=== PATIENT | female | born 1995 | race Caucasian/White ===

== ENCOUNTER 2017-08-03 07:45 | Inpatient (IN) ==
[2017-08-03] MEDS ORDERED: SODIUM CHLORIDE 0.9% 1,000 ML IV STA (08:09)
[2017-08-03] MEDS ORDERED: ONDANSETRON 4 MG/2 ML VIAL IV STA (08:09)
[2017-08-03] MEDS ORDERED: LABETALOL 20 MG/4 ML SYRINGE IV STA (08:20)
[2017-08-03] MEDS ORDERED: LABETALOL 20 MG/4 ML SYRINGE IV ONE (08:24)
[2017-08-03] MEDS ORDERED: ONDANSETRON 4 MG/2 ML VIAL ONE (08:24)
[2017-08-03 08:53] LABS: Basophils % 0.3 % (0.0-0.8); Hematocrit 43.4 VOL% (35.7-47.0); Hemoglobin 14.5 GM/DL (12.0-16.0); Immature Granulocytes % 0.3 %; Immature Granulocytes Absolute 0.03 #; Lymphocytes # 1.2 10*3/uL (1.4-4.0); Lymphocytes % 10.5 % (21.3-54.2); Mean Corpuscular HGB Conc 33.4 GM/DL (32-36); Mean Corpuscular Hemoglobin 26 PG (27-34); Mean Corpuscular Volume 77.5 FL (87-102); Mean Platelet Volume 10.3 FL (9.6-12.0); Monocytes % 8.5 % (1.7-12.7); Neutrophils # 9.2 10*3/uL (1.4-7.4); Neutrophils % 80.4 % (38.7-73.9); Platelet Count 337 T/CUMM (130-400); Red Cell Distribution Width 12.6 % (9.3-17.3); White Blood Count 11.5 T/CUMM (4-12)
[2017-08-03 09:52] LABS: Calcium 9.9 MG/DL (8.5-10.1); Osmolality,Calculated 265.1 MOS/KG (273-304)
[2017-08-03 11:23] LABS: Apearance,Urine Slightly Hazy (Clear); Bacteria,Urine Few /HPF (Few); Bilirubin,Urine Negative (Negative); Blood, Urine Small mg/dL (Negative); Glucose,Urine (UA) Negative (Negative); Ketones,Urine 80 mg/dL (Negative); Mucus,Urine Occasional /LPF (Occasional); Nitrite,Urine Negative (Negative); Protein,Urine 30 MG/DL; RBC,Urine 2 /HPF (0-4); Squamous Epithelial Cell,Urine Occasional /HPF (0-10); Urine Color Yellow (Yellow); Urine Specific Gravity 1.014 (1.001-1.035); WBC,Urine 1 /HPF (0-6)
[2017-08-03 11:29] LABS: Barbiturates Screen,Urine Negative (Negative); Benzodiazepines Screen,Urine Negative (Negative); Cannabinoid Screen,Urine Negative (Negative); Opiate Screen,Urine Negative (Negative); Phencyclidine Screen,Urine Negative (Negative)
[2017-08-03] MEDS ORDERED: ONDANSETRON 4 MG/2 ML VIAL IV PRN (12:14)
[2017-08-03] MEDS ORDERED: BISACODYL 10 MG SUPP RECTAL PRN (12:14)
[2017-08-03] MEDS ORDERED: ACETAMINOPHEN 325 MG TABLET PO PRN (12:14)
[2017-08-03] MEDS ORDERED: MAGNESIUM HYDROXIDE SUSP 30 ML UDCUP PO PRN (12:14)
[2017-08-03] MEDS ORDERED: IBUPROFEN 800 MG TABLET PO PRN (12:14)
[2017-08-03] MEDS ORDERED: PROMETHAZINE 25 MG/1 ML VIAL IM PRN (12:14)
[2017-08-03] MEDS: DOCUSATE SODIUM 100 MG CAPSULE PO SCH ×2 (12:35→21:16)
[2017-08-03] MEDS: LACTATED RINGERS 1,000 ML IV SCH ×2 (12:36→19:28)
[2017-08-03] MEDS ORDERED: LABETALOL 20 MG/4 ML SYRINGE IV SCH (14:00)
[2017-08-03] MEDS: ATENOLOL 50 MG TABLET PO SCH (21:16)
[2017-08-04] MEDS: LACTATED RINGERS 1,000 ML IV SCH ×4 (00:22→15:26)
[2017-08-04] MEDS: ATENOLOL 50 MG TABLET PO SCH ×2 (08:35→21:16)
[2017-08-04] MEDS: DOCUSATE SODIUM 100 MG CAPSULE PO SCH ×2 (08:39→21:16)
[2017-08-04] MEDS: PROPYLTHIOURACIL 50 MG TABLET PO SCH ×3 (16:09→22:35)
[2017-08-04] MEDS ORDERED: MULTIVITAMIN INJ 10 ML in LACTATED RINGERS 1,000 ML IV SCH (17:00)
[2017-08-05] MEDS: LACTATED RINGERS 1,000 ML IV SCH ×2 (01:23→06:11)
[2017-08-05 07:16] VITALS: BP 140/86
[2017-08-05] MEDS: DOCUSATE SODIUM 100 MG CAPSULE PO SCH (08:45)
[2017-08-05] MEDS: ATENOLOL 50 MG TABLET PO SCH (08:45)
[2017-08-05] MEDS ORDERED: PROPYLTHIOURACIL 50 MG TABLET PO SCH (09:00)
== END 2017-08-05 09:50 | disposition home or self-care (01) | DRG 566 ==
LOC: N.ED 07:45 → N.EDINP 08:34 → N.OB 11:48
PROVIDERS: ADMIT Obstetrics & Gynecology; ATTEND Obstetrics & Gynecology

== ENCOUNTER 2017-12-28 23:44 | Inpatient (IN) ==
[2017-12-29] MEDS ORDERED: TERBUTALINE 1 MG/1 ML VIAL SUBCUT ONE (01:18)
[2017-12-29] MEDS ORDERED: NIFEdipine 10 MG CAPSULE PO ONE (01:19)
[2017-12-29] MEDS ORDERED: LACTATED RINGERS 1,000 ML IV SCH ×2 (01:30→04:00)
[2017-12-29] MEDS ORDERED: ONDANSETRON 4 MG/2 ML VIAL IM PRN (02:10)
[2017-12-29] MEDS ORDERED: BUTORPHANOL 2 MG/ML VIAL IV PRN (02:12)
[2017-12-29 02:19] LABS: Apearance,Urine CLEAR (Clear); Bilirubin,Urine Negative (Negative); Blood, Urine Negative (Negative); Glucose,Urine (UA) Negative (Negative); Ketones,Urine Negative (Negative); Nitrite,Urine Negative (Negative); Protein,Urine Negative; RBC,Urine <1 /HPF (0-4); Squamous Epithelial Cell,Urine Occasional /HPF (0-10); Urine Color Straw (Yellow); Urine Specific Gravity 1.004 (1.001-1.035); Urine Urobilinogen < 2.0 EU/DL (0.2-1.0)
[2017-12-29] MEDS ORDERED: ONDANSETRON 4 MG/2 ML VIAL ONE (02:19)
[2017-12-29] MEDS ORDERED: ONDANSETRON 4 MG/2 ML VIAL IV PRN ×3 (02:34→04:11)
[2017-12-29] MEDS ORDERED: OXYTOCIN/LR 20 UNIT/1,000 ML BAG IV ONE ×3 (03:46→04:11)
[2017-12-29] MEDS ORDERED: oxyCODONE/ACETAMINOPHEN 5-325 MG TABLET PO PRN ×2 (04:11)
[2017-12-29] MEDS ORDERED: MEASLES/MUMPS/RUBELLA VACCINE 0.5 ML VIAL SUBCUT ONE (04:11)
[2017-12-29] MEDS ORDERED: ACETAMINOPHEN 325 MG TABLET PO PRN (04:11)
[2017-12-29] MEDS ORDERED: RHO(D) IMMUNE GLOBULIN 300 MCG SYRINGE IM ONE (04:11)
[2017-12-29] MEDS ORDERED: BISACODYL 10 MG SUPP RECTAL PRN (04:11)
[2017-12-29] MEDS ORDERED: DIPH/TET/ACEL PERT BOOSTER VACCINE 0.5 ML VIAL IM ONE (04:11)
[2017-12-29] MEDS ORDERED: LANOLIN 50% CREAM 0.3 OZ TUBE TOP PRN (04:11)
[2017-12-29] MEDS ORDERED: WITCH HAZEL PADS 100/JAR TOP PRN (04:11)
[2017-12-29] MEDS ORDERED: HYDROCORTISONE 2.5% RECTAL CREAM 30 GM TUBE TOP PRN (04:11)
[2017-12-29] MEDS ORDERED: BENZOCAINE 20%/MENTHOL 0.5% SPRAY 56 GM CAN TOP PRN (04:11)
[2017-12-29 04:50] LABS: Barbiturates Screen,Urine Negative (Negative); Benzodiazepines Screen,Urine Negative (Negative); Cannabinoid Screen,Urine Negative (Negative); Opiate Screen,Urine Negative (Negative); Phencyclidine Screen,Urine Negative (Negative)
[2017-12-29 04:51] LABS: Cord Arterial Blood HCO3 20.4 MMOL/L
[2017-12-29 04:57] LABS: Cord Venous Blood HCO3 21.6 MMOL/L; Cord Venous Blood PCO2 43.4 MMHG; Cord Venous Blood PO2 29.7
[2017-12-29] MEDS ORDERED: NIFEdipine 10 MG CAPSULE PO SCH (05:30)
[2017-12-29 07:08] LABS: Basophils % 0.2 % (0.0-0.8); Eosinophils % 0.1 % (0.00-10.9); Hemoglobin 11.4 GM/DL (12.0-16.0); Immature Granulocytes % 0.5 %; Immature Granulocytes Absolute 0.08 #; Mean Corpuscular HGB Conc 32.6 GM/DL (32-36); Mean Corpuscular Hemoglobin 25 PG (27-34); Mean Corpuscular Volume 77.6 FL (87-102); Monocytes # 0.9 10*3/uL (0.11-0.8); Monocytes % 5.4 % (1.7-12.7); Neutrophils # 14.9 10*3/uL (1.4-7.4); Neutrophils % 87.8 % (38.7-73.9); Platelet Count 289 T/CUMM (130-400); Red Blood Count 4.51 MC/CUMM (3.8-5.5); Red Cell Distribution Width 13.4 % (9.3-17.3); White Blood Count 16.9 T/CUMM (4-12)
[2017-12-29] MEDS: IBUPROFEN 800 MG TABLET PO PRN ×2 (07:40→19:42)
[2017-12-29] MEDS: DOCUSATE SODIUM 100 MG CAPSULE PO SCH ×3 (09:57→20:45)
[2017-12-29] MEDS ORDERED: PROPYLTHIOURACIL 50 MG TABLET PO SCH ×2 (11:22→15:00)
[2017-12-29] MEDS ORDERED: LABETALOL 100 MG TABLET PO SCH ×2 (11:30→14:00)
[2017-12-29] MEDS ORDERED: ATENOLOL 50 MG TABLET PO SCH (11:30)
[2017-12-29] MEDS: PROPYLTHIOURACIL 50 MG TABLET PO SCH ×2 (17:20→20:46)
[2017-12-29] MEDS: LABETALOL 100 MG TABLET PO SCH (20:47)
[2017-12-30 05:14] LABS: Basophils % 0.4 % (0.0-0.8); Eosinophils # 0.2 10*3/uL (0.0-0.87); Hemoglobin 10.1 GM/DL (12.0-16.0); Immature Granulocytes % 0.6 %; Immature Granulocytes Absolute 0.05 #; Lymphocytes # 2.2 10*3/uL (1.4-4.0); Lymphocytes % 26.3 % (21.3-54.2); Mean Corpuscular HGB Conc 32.6 GM/DL (32-36); Mean Corpuscular Hemoglobin 26 PG (27-34); Mean Corpuscular Volume 78.5 FL (87-102); Mean Platelet Volume 10.9 FL (9.6-12.0); Monocytes # 0.8 10*3/uL (0.11-0.8); Monocytes % 9.8 % (1.7-12.7); Neutrophils # 5.2 10*3/uL (1.4-7.4); Neutrophils % 60.9 % (38.7-73.9); Platelet Count 236 T/CUMM (130-400); Red Blood Count 3.95 MC/CUMM (3.8-5.5); Red Cell Distribution Width 13.6 % (9.3-17.3); White Blood Count 8.5 T/CUMM (4-12)
[2017-12-30] MEDS: IBUPROFEN 800 MG TABLET PO PRN (09:01)
[2017-12-30] MEDS: LABETALOL 100 MG TABLET PO SCH (09:04)
[2017-12-30] MEDS: DOCUSATE SODIUM 100 MG CAPSULE PO SCH ×2 (09:05→21:56)
[2017-12-30] MEDS: PROPYLTHIOURACIL 50 MG TABLET PO SCH ×3 (09:05→21:57)
[2017-12-30] MEDS ORDERED: ATENOLOL 50 MG TABLET PO SCH (10:30)
[2017-12-30] MEDS: ATENOLOL 50 MG TABLET PO SCH (21:56)
[2017-12-31 07:20] VITALS: BP 110/64
[2017-12-31] MEDS: DOCUSATE SODIUM 100 MG CAPSULE PO SCH (08:30)
[2017-12-31] MEDS: ATENOLOL 50 MG TABLET PO SCH (08:30)
[2017-12-31] MEDS: PROPYLTHIOURACIL 50 MG TABLET PO SCH (08:31)
[2017-12-31] MEDS: IBUPROFEN 800 MG TABLET PO PRN (08:31)
== END 2017-12-31 12:10 | disposition home or self-care (01) | DRG 560 ==
LOC: N.LDOUT 23:44 → N.LD 23:48 → N.OB 12-29 05:15
PROVIDERS: ADMIT Specialist; ATTEND Specialist